=== PATIENT | female | born 1970 ===

== ENCOUNTER 2019-08-14 16:22 | Outpatient (REF) | payer OTHER, SELFPAY ==
[2019-08-14 21:39] LABS: Abs Immature Grans 0.02 k/cumm (0.0-0.09); Absolute Basophil Count 0.05 k/cumm (0.0-0.2); Absolute Lymphocyte Count 2.64 k/cumm (1.2-3.4); Absolute Neutrophil Count 5.33 k/cumm (1.2-6.7); Basophils % 0.6; HCT 43.6 % (36.0-46.0); Immature Grans % 0.2 %; Lymphocytes % 29.5; Mean Corp. HGB Concentration 34.4 g/dL (32.0-36.0); Mean Corpuscular Hemoglobin 36.8 pg (27.0-33.0); Mean Corpuscular Volume 106.9 fL (80-95); Mean Platelet Volume 9.9 fL (8.0-11.0); Monocytes % 10.1; Neutrophils % 59.6; Platelet Count 293 x1000/uL (130-400); RBC 4.08 m/cumm (4.00-5.20); RBC Distribution Width 12.7 % (11.7-14.6); White Blood Cell Count 8.94 k/cumm (4.4-10.8)
[2019-08-14 21:49] LABS: ALT 71 U/L (14-59); AST 115 U/L (15-37); Albumin 3.3 g/dL (3.4-5.0); Alkaline Phosphatase 226 U/L (46-116); Anion Gap 6.7 mmol/L (3-11); BUN 8 mg/dL (7-18); Bilirubin, Total 0.3 mg/dL (0.2-1.0); CO2 33.3 mmol/L (21.0-32.0); CREATININE 0.85 mg/dL (0.55-1.02); Calcium 8.6 mg/dL (8.5-10.1); Chloride 100 mmol/L (98-107); Glucose 99 mg/dL (74-106); Lipase 266 U/L (73-393); Potassium 3.8 mmol/L (3.5-5.1); Sodium 140 mmol/L (136-145)
[2019-08-14 21:59] LABS: Diff Comment RBC Morph Reviewed; Hypochromasia 1+; Macrocytosis 1+
[2019-08-14 22:00] LABS: Poikilocytes 1+
== END 2019-08-14 16:42 ==
LOC: NCHCN 16:22
PROVIDERS: Visit Provider Nurse Practitioner Community Health
DX: R10.11 Right upper quadrant pain (principal)
CPT/HCPCS: 80053; 83690; 85025

== ENCOUNTER 2021-04-22 15:25 | Outpatient (REF) | payer MEDICAID, SELFPAY ==
[2021-04-22 15:04] LABS: BUN 16 mg/dL (7-18); CREATININE 0.9 mg/dL (0.55-1.02); Calcium 9.1 mg/dL (8.5-10.1); Chloride 101 mmol/L (98-107); Glucose 88 mg/dL (74-106); Potassium 4.6 mmol/L (3.5-5.1); Sodium 140 mmol/L (136-145)
== END 2021-04-22 15:26 | disposition home or self-care (01) ==
LOC: NCHCN 15:25
PROVIDERS: PCP Nurse Practitioner Family; Visit Provider Nurse Practitioner Family
DX: I10 Essential (primary) hypertension (principal)
CPT/HCPCS: 80048